=== PATIENT | male | born 1980 | race Caucasian/White ===

== ENCOUNTER 2018-05-12 11:23 | Emergency (ER) | payer OTHER ==
[2018-05-12 11:49] VITALS: BP 136/73
[2018-05-12 12:09] LABS: Influenza A Molecular NEGATIVE (Negative); Influenza B Molecular NEGATIVE (Negative)
--- NOTE | 2018-05-12 12:40 | UC ---
FLU HPI - HPI Summary HPI Summary: 38-year-old male comes in with a chief complaint of 2 days of fever chills and body aches. Overall his been having lots chills minimal rhinorrhea and minimal sore throat. No cough or chest congestion. The myalgias are mild. Ibuprofen has helped some with the symptoms. This morning at about 1 AM he started with diarrhea. It continued throughout the morning. Tried to go to work but is continuing to have the feeling that he needs to have a bowel movement and he gets minimal watery diarrhea out. No blood in the diarrhea. He does have some lower abdominal pain it's bilateral lower abdominal pain. The pain waxes and wanes sometimes is more intense and other times is less. No problems with urination. He does feel little lightheaded when he stands up. His appendix out years ago. - History of Current Complaint Chief Complaint: UCGeneralIllness Stated Complaint: COLD CHILLS THROAT Time Seen by Provider: 05/12/18 12:01 Pain Intensity: 3 - Allergy/Home Medications Allergies/Adverse Reactions: Allergies Allergy/AdvReac Type Severity Reaction Status Date / Time lisinopril Allergy See Comment Verified 05/12/18 11:49 Home Medications: Home Medications Amlodipine Besylate [Norvasc 5 mg tab] 5 mg PO DAILY 05/12/18 [History Confirmed 05/12/18] PMH/Surg Hx/FS Hx/Imm Hx Previously Healthy: Yes Cardiovascular History: Hypertension - Surgical History Surgical History: Yes Surgery Procedure, Year, and Place: appendectomy - Family History Known Family History: Positive: Non-Contributory - Social History Alcohol Use: Occasionally Substance Use Type: Marijuana Substance Use Comment - Amount & Last Used: occ. use; smoke marijuana "a few days ago" Smoking Status (MU): Current Every Day Smoker Amount Used/How Often: 1ppd Household Exposure Type: Cigarettes Review of Systems All Other Systems Reviewed And Are Negative: Yes Constitutional: Positive: Fever, Chills Skin: Positive: Negative Eyes: Positive: Negative ENT: Positive: Sore Throat, Nasal Discharge Respiratory: Positive: Negative Cardiovascular: Positive: Negative Gastrointestinal: Positive: Abdominal Pain, Diarrhea Genitourinary: Positive: Negative Motor: Positive: Negative Neurovascular: Positive: Negative Musculoskeletal: Positive: Myalgia Neurological: Positive: Negative Psychological: Positive: Negative Is Patient Immunocompromised?: No Physical Exam Triage Information Reviewed: Yes Appearance: No Pain Distress, Well-Nourished, Ill-Appearing - MILD Vital Signs: Initial Vital Signs Temp 101.2 F 05/12/18 11:42 Pulse 111 05/12/18 11:42 Resp 18 05/12/18 11:42 BP 136/73 05/12/18 11:42 Pulse Ox 98 05/12/18 11:42 Vital Signs Reviewed: Yes Eye Exam: Normal Eyes: Positive: Conjunctiva Clear ENT: Positive: Pharyngeal erythema, Nasal congestion, Nasal drainage, TMs normal Neck exam: Normal Neck: Positive: Supple Respiratory: Positive: Lungs clear, Normal breath sounds, No respiratory distress Cardiovascular: Positive: Tachycardia Abdomen Description: Positive: Soft, Other: - Mild tenderness to palpation left lower quadrant and right lower quadrant. There is no rebound.. Negative: CVA Tenderness (R), CVA Tenderness (L) Bowel Sounds: Positive: Present Musculoskeletal Exam: Normal Musculoskeletal: Positive: Strength Intact, ROM Intact Neurological Exam: Normal Neurological: Positive: Alert, Muscle Tone Normal Psychological Exam: Normal Psychological: Positive: Age Appropriate Behavior Skin Exam: Normal Flu Course/Dx - Course Course Of Treatment: I discussed the influenza test results with the patient. At this time he does have body aches fevers chills and diarrhea. His illness started without diarrhea or without any abdominal pain. It appears clinically at this time the diarrhea and abdominal pain are secondary to the initial global illness rather than the fevers being from the abdomen. Has not been on antibiotics recently. Abdominal tenderness is mild. No blood in the stools. Plan is to treat symptomatically for the overall global illness and also get a stool sample. We discussed that if he worsens with abdominal pain dehydration or any other concerns he needs to get reevaluated. - Differential Dx/Diagnosis Provider Diagnosis: Influenza-like illness, Diarrhea, Abdominal pain Discharge - Sign-Out/Discharge Documenting (check all that apply): Patient Departure All imaging exams completed and their final reports reviewed: No Studies - Discharge Plan Condition: Stable Disposition: HOME Patient Education Materials: Fever in Adults (ED), Acute Diarrhea (ED), Acute Abdominal Pain (ED) Forms: *Work Release Referrals: Ambrose Floyd MD [Primary Care Provider] - Additional Instructions: FOLLOW UP WITH YOUR DOCTOR IF NOT COMPLETELY IMPROVED. GET RECHECKED FOR ANY WORSENING OF YOUR CONDITION; PAIN, DEHYDRATION OR QUESTIONS OR CONCERNS. - Billing Disposition and Condition Condition: STABLE Disposition: Home
== END 2018-05-12 13:00 | disposition home or self-care (01) ==
LOC: UCEAST 11:23
DX: J11.1 Influenza due to unidentified influenza virus with other respiratory manifestations (principal); R19.7 Diarrhea, unspecified; F17.210 Nicotine dependence, cigarettes, uncomplicated; I10 Essential (primary) hypertension; R10.32 Left lower quadrant pain; R10.31 Right lower quadrant pain; Z88.8 Allergy status to other drugs, medicaments and biological substances; Z79.899 Other long term (current) drug therapy
CPT/HCPCS: 99201; G0463

== ENCOUNTER 2018-12-13 06:58 | Emergency (ER) | payer OTHER ==
[2018-12-13] MEDS ORDERED: oxyCODONE/Acetamin 5/325 MG* TAB PO ONE (07:51)
[2018-12-13] MEDS ORDERED: Ibuprofen TAB* 800 MG PO ONE (07:51)
--- NOTE | 2018-12-13 08:12 | ED ---
GI/ HPI - HPI Summary HPI Summary: This patient is a 38 year old M presenting to [facility] with a chief complaint of penile pain and swelling since 12/11/18. Symptoms aggravated by urinating and retracting foreskin. Symptoms alleviated by nothing. Patient reports he put a ring around the base of his penis several days ago which got too tight and got stuck. Patient reports he took the ring off leaving a "big lump and has since then been swelling up" turned a weird color, and is painful to touch. Patient reports he can urinate but has limited retraction due to pain (patient is uncircumsized). He is able to fully retract foreskin but has significant pain. Hx hypercholesterolemia and hypertension (is currently on medication for both). Shx appendectomy. Patient denies bleeding, drainage, fever per triage. Patient smokes but denies alcohol consumption. - History of Current Complaint Chief Complaint: EDUrogenitalProblems Time Seen by Provider: 12/13/18 07:32 Stated Complaint: PAIN/LUMP IN GROIN AREA PER PT Hx Obtained From: Patient Onset/Duration: Started Days Ago, Still Present Timing: Constant Pain Intensity: 8 Associated Signs and Symptoms: Positive: Other: - denies any urinary sympotoms, reports limited retraction, penile coloring. Negative: Fever Additional Signs & Symptoms: Positive: Penile Swelling. Negative: Penile Discharge Aggravating Factor(s): Nothing Alleviating Factor(s): Nothing - Allergy/Home Medications Allergies/Adverse Reactions: Allergies Allergy/AdvReac Type Severity Reaction Status Date / Time lisinopril Allergy See Comment Verified 12/13/18 07:03 PMH/Surg Hx/FS Hx/Imm Hx Endocrine/Hematology History: Denies: Hx Diabetes, Hx Thyroid Disease Cardiovascular History: Reports: Hx Hypertension Respiratory History: Denies: Hx Asthma, Hx Chronic Obstructive Pulmonary Disease (COPD) GI History: Denies: Hx Ulcer Sensory History: Reports: Hx Contacts or Glasses Opthamlomology History: Reports: Hx Contacts or Glasses - Surgical History Surgery Procedure, Year, and Place: appendectomy Infectious Disease History: No Infectious Disease History: Denies: Hx Hepatitis, Hx Human Immunodeficiency Virus (HIV), Traveled Outside the [place] in Last 30 Days - Family History Known Family History: Positive: Non-Contributory - Social History Alcohol Use: Occasionally Hx Substance Use: Yes Substance Use Type: Reports: Marijuana Substance Use Comment - Amount & Last Used: occ. use; smoke marijuana "a few days ago" Hx Tobacco Use: Yes Smoking Status (MU): Current Every Day Smoker Amount Used/How Often: 1ppd Review of Systems Negative: Fever Genitourinary: Other - reports urination, limited retraction; denies bleeding Positive: pain, other - swelling, color. Negative: discharge All Other Systems Reviewed And Are Negative: Yes Physical Exam - Summary Physical Exam Summary: Constitutional: Well-developed, Well-nourished, Alert. (-) Distressed Skin: Dorsal midshaft of penis has a 2 cm area of swelling and ecchymosis HENT: Normocephalic; Atraumatic Eyes: Conjunctiva normal Neck: Musculoskeletal ROM normal neck. (-) JVD, (-) Stridor, (-) Nuchal rigidity Cardio: Rhythm regular, rate normal, Heart sounds normal; Intact distal pulses; Radial pulses are 2+ and symmetric. (-) Murmur Pulmonary/Chest wall: Effort normal. (-) Respiratory distress Abd: Soft, (-) tenderness, (-) Distension, (-) Guarding, (-) Rebound : 2 cm area ecchymosis and swelling to midshaft or dorsal penis with surrounding tenderness, uncircumcised (able to retract foreskin), no discharge Musculoskeletal: (-) Edema Neuro: Alert, Oriented x3 Psych: Mood and affect Normal Triage Information Reviewed: Yes Vital Signs On Initial Exam: Initial Vitals Temp Pulse Resp BP Pulse Ox 98.5 F 102 16 158/103 97 12/13/18 07:00 12/13/18 07:00 12/13/18 07:00 12/13/18 07:00 12/13/18 07:00 Vital Signs Reviewed: Yes Diagnostics - Vital Signs Vital Signs Temp Pulse Resp BP Pulse Ox 12/13/18 07:00 98.5 F 102 16 158/103 97 - Laboratory Lab Statement: Any lab studies that have been ordered have been reviewed, and results considered in the medical decision making process. Re-Evaluation - Re-Evaluation First Eval Re-Evaluation Time: 09:05 Change: Improved - Patient states pain is improved, however has swelling and bruising to the area where the penis or otherwise. Able to retract foreskin., We 'll discuss with urology environmental services attendant whether or not patient will require drainage of hematoma and for follow-up GIGU Course/Dx - Course Course Of Treatment: 38 y/o male presents with penile pain and swelling after penile ring placement. - PE with hematoma to the dorsal side of the penis shaft. Patient able to urinate. Given pain medications in attempt to retract foreskin to assess for phimosis. Check UA - Diagnoses Provider Diagnoses: Penis injury - Physician Notifications Discussed Care Of Patient With: Kareem Wayne Time Discussed With Above Provider: 09:10 Instructed by Provider To: Other - Tone agrees with pain control and short course of abx. Patient can follow up with him as needed. Discharge ED - Sign-Out/Discharge Documenting (check all that apply): Patient Departure - discharge Patient Received Moderate/Deep Sedation with Procedure: No - Discharge Plan Condition: Stable Disposition: HOME Prescriptions: oxyCODONE/Acetamin 5/325 MG* [Percocet 5/325 TAB*] 1 tab PO Q6H PRN 3 Days #12 tab MDD 4 PRN Reason: Pain Sulfamethox/Trimethoprim DS* [Bactrim DS 800/160 TAB*] 1 tab PO BID 7 Days #14 tab Forms: *Work Release Referrals: Ambrose Floyd MD [Primary Care Provider] - If Needed Kareem Wayne MD [Medical Doctor] - If Needed Additional Instructions: You were seen the emergency department for an injury to your penis. We spoke with a urologist who recommends that you can place ice on it.You can take Motrin or Tylenol for pain, and Percocet for severe pain. Please return to emergency department for inability to urinate, worsening pain, or if you're concerned. Please take Bactrim, and antibiotic twice a day for 7 days. Please follow up with urology - Billing Disposition and Condition Condition: STABLE Disposition: Home - Attestation Statements Document Initiated by Scribe: Yes Documenting Scribe: Socorro Alves Provider For Whom Lilli is Documenting (Include Credential): Dr. Luis F Webb MD Scribe Attestation: Socorro Phillip , scribed for Dr. Luis F Webb MD on 12/13/18 at 0959. Scribe Documentation Reviewed: Yes Provider Attestation: The documentation as recorded by the Socorro mojica accurately reflects the service I personally performed and the decisions made by me, Dr. Luis F Webb MD Status of Scribe Document: Viewed
[2018-12-13 08:42] LABS: Urine Appearance Clear; Urine Bilirubin Negative (Negative); Urine Blood Negative (Negative); Urine Color Straw; Urine Glucose 3+(>=500 mg/dL) (Negative); Urine Ketones Trace (Negative); Urine Nitrite Negative (Negative); Urine Protein Negative (Negative); Urine Specific Gravity 1.028 (1.010-1.030); Urine Urobilinogen Negative (Negative)
[2018-12-13] MEDS ORDERED: Sulfamethox/Trimethoprim DS 800/160* TAB PO ONE (09:13)
[2018-12-13 09:43] VITALS: BP 101/70
== END 2018-12-13 09:32 | disposition home or self-care (01) ==
LOC: ED 06:58
DX: S39.94XA Unspecified injury of external genitals, initial encounter (principal); N48.89 Other specified disorders of penis; R19.00 Intra-abdominal and pelvic swelling, mass and lump, unspecified site; I10 Essential (primary) hypertension; E78.00 Pure hypercholesterolemia, unspecified; F17.210 Nicotine dependence, cigarettes, uncomplicated; X58.XXXA Exposure to other specified factors, initial encounter; Y92.9 Unspecified place or not applicable
CPT/HCPCS: 81003; 99282; A9270-GY

== ENCOUNTER 2019-02-17 10:21 | Emergency (ER) | payer OTHER ==
--- NOTE | 2019-02-17 10:38 | UC ---
Throat Pain/Nasal Chirag HPI - HPI Summary HPI Summary: 39 yo male presents with URI symptoms. He tells me that for the past 2 weeks he has had sinus pain/pressure/congestion, b/l earache, sore throat, and dry cough. He saw his PCP 1 week ago and was placed on amoxicillin for 10 days - he has been taking this with no change in his symptoms. Has felt feverish, but has not taken his temperature. 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 He smokes daily. Denies SOB, chest pain, abdominal pain, n/v. - History of Current Complaint Chief Complaint: UCRespiratory Stated Complaint: SINUS CONGESTION, AND SORE THROAT Time Seen by Provider: 02/17/19 10:38 Hx Obtained From: Patient Onset/Duration: Gradual Onset Severity: Moderate Pain Intensity: 8 Pain Scale Used: 0-10 Numeric - Allergies/Home Medications Allergies/Adverse Reactions: Allergies Allergy/AdvReac Type Severity Reaction Status Date / Time lisinopril Allergy See Comment Verified 02/17/19 10:33 Home Medications: Home Medications Amoxicillin 1 tab PO BID 02/17/19 [History Confirmed 02/17/19] Dm/PE/Acetaminophen/Doxylamine [Arlyn-Celina Plus Day-Night Cp] 1 tab PO ONCE PRN 02/17/19 [History Confirmed 02/17/19] Fluticasone NASAL SPRAY 50MCG* [Flonase NASAL SPRAY 50MCG*] 1 spray INH DAILY [History Confirmed 02/17/19] Ipratropium Br (Nf)0.03% Nasal [Ipratropium [place]] 1 spray INH DAILY 02/17/19 [History Confirmed 02/17/19] Simvastatin [Zocor 5 MG-] 1 tab PO DAILY 02/17/19 [History Confirmed 02/17/19] PMH/Surg Hx/FS Hx/Imm Hx Endocrine History: Dyslipidemia Cardiovascular History: Hypertension - Surgical History Surgical History: Yes Surgery Procedure, Year, and Place: appendectomy - Family History Known Family History: Positive: Hypertension - Social History Occupation: Employed Full-time Lives: With Family Alcohol Use: Occasionally Substance Use Type: Marijuana Substance Use Comment - Amount & Last Used: occ. use; smoke marijuana "a few days ago" Smoking Status (MU): Current Every Day Smoker Amount Used/How Often: 1ppd Household Exposure Type: Cigarettes Review of Systems All Other Systems Reviewed And Are Negative: No Constitutional: Positive: Fever Skin: Positive: Negative Eyes: Positive: Negative ENT: Positive: Sore Throat, Ear Ache, Nasal Discharge, Sinus Congestion, Sinus Pain/Tenderness Respiratory: Positive: Cough Cardiovascular: Positive: Negative Gastrointestinal: Positive: Negative Neurological: Positive: Negative Psychological: Positive: Negative Physical Exam - Summary Physical Exam Summary: GENERAL: NAD. WDWN. No pain distress. SKIN: No rashes, sores, lesions, or open wounds. HEENT: Head: AT/NC Eyes: EOM intact. Conjunctiva clear without inflammation or discharge. Ears: Hearing grossly normal. TMs intact, no bulging, erythema, or edema. Nose: Nasal mucosa mildly swollen and erythematous with clear discharge. TTP maxillary > frontal sinus. Positive post nasal drip Throat: Posterior oropharynx without exudates, erythema, or tonsillar enlargement. Uvula midline. NECK: Supple. Nontender. No lymphadenopathy. CHEST: CTAB. No r/r/w. No accessory muscle use. Breathing comfortably and in no distress. CV: RRR. Pulses intact. NEURO: Alert. PSYCH: Age appropriate behavior. Triage Information Reviewed: Yes Vital Signs: Initial Vital Signs Temp 100.3 F 02/17/19 10:29 Pulse 93 02/17/19 10:29 Resp 18 02/17/19 10:29 BP 162/101 02/17/19 10:29 Pulse Ox 97 02/17/19 10:29 Vital Signs Reviewed: Yes Throat Pain/Nasal Course/Dx - Course Course Of Treatment: Sinusitis. >2 weeks of symptoms with failure of amoxicillin - will switch to zpak. - Differential Dx/Diagnosis Provider Diagnosis: Sinusitis Discharge ED - Sign-Out/Discharge Documenting (check all that apply): Patient Departure All imaging exams completed and their final reports reviewed: No Studies - Discharge Plan Condition: Stable Disposition: HOME Prescriptions: Azithromycin TAB* [Zithromax TAB (Z-JOHNNY) 250 mg #6 tabs] 2 tab PO .TODAY, THEN 1 DAILY #1 johnny Benzonatate CAP* [Tessalon 100 MG CAP*] 100 mg PO TID PRN #21 cap PRN Reason: Cough predniSONE TAB* [Deltasone 20 MG TAB*] 40 mg PO DAILY #10 tab Patient Education Materials: Sinusitis (ED) Referrals: Ambrose Floyd MD [Primary Care Provider] - Additional Instructions: If you develop a fever, shortness of breath, chest pain, new or worsening symptoms - please call your PCP or go to the ED immediately. Your blood pressure was high at todays visit. Please see your primary provider within 4 weeks for recheck and re-evaluation. Stop taking the amoxicillin - Billing Disposition and Condition Condition: STABLE Disposition: Home
[2019-02-17 10:42] VITALS: BP 152/100
== END 2019-02-17 10:54 | disposition home or self-care (01) ==
LOC: UCEAST 10:21
DX: J32.9 Chronic sinusitis, unspecified (principal); R05 Cough; I10 Essential (primary) hypertension; E78.5 Hyperlipidemia, unspecified; F17.210 Nicotine dependence, cigarettes, uncomplicated; H92.03 Otalgia, bilateral; Z88.8 Allergy status to other drugs, medicaments and biological substances; Z79.899 Other long term (current) drug therapy
CPT/HCPCS: 99212; G0463